=== PATIENT | female | born 1985 | race Asian ===

== ENCOUNTER 2022-06-02 13:37 | Emergency (ER) | payer BC ==
[~2022-06-02] VITALS: Ht 167.6 cm; Wt 54.4 kg
[2022-06-02 14:00] VITALS: BP_SYST 110
--- NOTE | 2022-06-02 14:00 | NUR ---
Patient to ER bed 4 to gown for evaluation. Side rails up. Report given to Dixie GLASS.
--- NOTE | 2022-06-02 14:05 | NUR ---
Pt came in from home c/o abdominal pain times 2 days. Pt states she has been constipated for two days. States did not attempt home remedies. Denies f/v/d or medical hx. No hx of surgeries. Pt is A&Ox4, calm and cooperative.
[2022-06-02 14:56] LABS: BILIRUBIN,URINE NEGATIVE (NEGATIVE); BLOOD, URINE NEGATIVE (NEGATIVE); CLARITY/URINE CLEAR (CLEAR); GLUCOSE,URINE NEGATIVE (NEGATIVE); KETONES,URINE NEGATIVE (NEGATIVE); LEUKOCYTE ESTERASE ,URINE NEGATIVE (NEGATIVE); NITRITE, URINE NEGATIVE (NEGATIVE); PROTEIN URINE NEGATIVE (NEGATIVE); UROBILINOGEN,URINE 0.2 (0.2-1.0)
[2022-06-02 14:59] LABS: ANION GAP 5 (5-15); CALCIUM 8.7 mg/dL (8.4-11.0); CHLORIDE 104 mmol/L (98-107); CREATININE 0.71 mg/dL (0.55-1.30); GLUCOSE 87 mg/dL (70-99); POTASSIUM 4.1 mmol/L (3.5-5.1); UREA NITROGEN, BLOOD 9 mg/dL (8-21)
[2022-06-02 15:01] LABS: GFR AFRICAN AMERICAN 121 mL/min (>90)
[2022-06-02 15:02] LABS: COLOR,URINE STRAW (YELLOW)
[2022-06-02 15:03] LABS: ALANINE AMINOTRANSFERASE 15 U/L (12-78); ALBUMIN 3.8 g/dL (3.4-4.8); AMYLASE 152 U/L (0-100); ASPARTATE AMINOTRANSFERASE 13 U/L (10-37); LIPASE 150 U/L (73-393); TOTAL BILIRUBIN 0.2 mg/dL (0.0-1.0)
[2022-06-02 15:05] LABS: C-REACTIVE PROTEIN QUANT < 0.2 mg/dL (0-0.5)
--- NOTE | 2022-06-02 15:06 | NUR ---
Patient given written and verbal discharge instructions and verbalizes understanding. ER Dr. Reed DIEGO discussed with patient the results and treatment provided. Patient in stable condition. ID arm band removed. Rx of hydrocodone given. Patient educated on pain management and to follow up with PMD. Pain Scale 2/10. Opportunity for questions provided and answered. Medication side effect fact sheet provided.
--- NOTE | 2022-06-02 15:09 | NUR ---
ER Dr. Mcbride at bedside examining patient.
[2022-06-02 15:53] LABS: BASOPHILS % (AUTO) 0.8 % (0.0-2.0); EOSINOPHILS # (AUTO) 0.1 K/uL (0.0-0.4); EOSINOPHILS % (AUTO) 2.8 % (0.0-4.0); HEMATOCRIT 34.7 % (36-48); LYMPHOCYTES # (AUTO) 1.8 K/uL (1.0-5.5); LYMPHOCYTES % (AUTO) 44.1 % (20.5-51.5); MEAN CORPUSCULAR VOLUME 87 fL (79.0-98.0); MONOCYTES # (AUTO) 0.3 K/uL (0.0-1.0); MONOCYTES % (AUTO) 6.2 % (1.7-9.3); NEUTROPHILS # (AUTO) 1.9 K/uL (1.8-7.7); NEUTROPHILS % (AUTO) 46.1 % (40.0-70.0); PLATELET COUNT (AUTO) 256 K/uL (130-430); RED BLOOD CELL COUNT(AUTO) 3.99 MIL/uL (4.2-6.2); RED CELL DISTRIBUTION WIDTH 17.5 % (9.0-15.0); WHITE BLOOD COUNT (AUTO) 4.1 K/uL (4.8-10.8)
[2022-06-02] MEDS ORDERED: IBUP-1969 PO (16:28)
[2022-06-02] MEDS ORDERED: HYDR-3917 PO (16:28)
--- NOTE | 2022-06-02 18:09 | NUR ---
Patient eloped without receiving d/c instructions.
== END 2022-06-02 18:09 | disposition left against medical advice (07) ==
LOC: SED 13:37
DX: R10.2 Pelvic and perineal pain (principal); Z79.899 Other long term (current) drug therapy
CPT/HCPCS: 36415; 76376; 80053; 81003; 81025; 82150; 83605; 83690; 85025; 86140; 99284